=== PATIENT | female | born 1945 | race Two or more races ===

== ENCOUNTER 2022-10-27 10:30 | Inpatient (IN) | payer MEDICARE ==
[~2022-10-27] VITALS: Ht 162.6 cm; Wt 62.6 kg
[2022-10-27] MEDS ORDERED: EZET10TA32 PO (11:11)
[2022-10-27] MEDS ORDERED: HYDR30CR79 RC (11:11)
[2022-10-27] MEDS ORDERED: ACET-2605 PO (11:11)
[2022-10-27] MEDS ORDERED: SERT100T12 PO (11:11)
[2022-10-27] MEDS ORDERED: FOLI0.8C PO (11:11)
[2022-10-27] MEDS ORDERED: FAMO20TA8 PO (11:11)
[2022-10-27] MEDS ORDERED: CETI-90 PO (11:11)
[2022-10-27] MEDS ORDERED: CHOL200013 PO (11:11)
[2022-10-27] MEDS ORDERED: IPRA42SP BNOSTRILS (11:11)
[2022-10-27] MEDS ORDERED: MEMA10TA56 PO (11:11)
[2022-10-27] MEDS ORDERED: IBUP-2383 PO (11:11)
[2022-10-27] MEDS ORDERED: DONE5TAB34 PO (11:11)
[2022-10-27] MEDS ORDERED: BLOOD SUGAR DIAGNOSTIC 1 EACH STRIP IN ONE (15:00)
[2022-10-27] MEDS ORDERED: MAGNESIUM HYDROXIDE 30 ML UDC PO PRN (15:00)
[2022-10-27] MEDS ORDERED: ACETAMINOPHEN 325 MG TABLET PO PRN (15:00)
[2022-10-27] MEDS ORDERED: MAG HYDROX/AL HYDROX/SIMETH 30 ML UDC PO PRN (15:00)
[2022-10-27 15:01] VITALS: BP 125/59
[2022-10-27 16:00] VITALS: BP 127/69
[2022-10-27] MEDS: IPRATROPIUM NEB FS 0.5 MG/2.5 ML AMPUL.NEB NEB SCH (19:30)
[2022-10-27] MEDS: MEMANTINE HCL 5 MG TABLET PO SCH (20:48)
[2022-10-28] MEDS: IPRATROPIUM NEB FS 0.5 MG/2.5 ML AMPUL.NEB NEB SCH ×4 (01:30→19:30)
[2022-10-28] MEDS ORDERED: Z GUARD REMEDY 4 OZ OINT TP PRN (06:00)
[2022-10-28 08:00] VITALS: BP 138/56
[2022-10-28 08:19] LABS: BASOPHILS % (AUTO) 0.6 % (0.0-2.0); EOSINOPHILS % (AUTO) 0.8 % (0.0-6.0); HEMATOCRIT 41 % (33-45); HEMOGLOBIN 13.3 g/dL (11.5-14.8); LYMPHOCYTES # (AUTO) 1.1 K/uL (0.8-4.8); MEAN CORPUSCULAR HGB CONC 33 g/dl (31.0-36.0); MEAN CORPUSCULAR VOLUME 91 fL (82-100); MONOCYTES # (AUTO) 0.6 K/uL (0.1-1.30); MONOCYTES % (AUTO) 9.3 % (2.0-12.0); NEUTROPHILS # (AUTO) 4.6 K/uL (1.8-8.9); NEUTROPHILS % (AUTO) 72.3 % (43.0-81.0); PLATELET COUNT (AUTO) 213 K/uL (150-450); RED BLOOD CELL COUNT(AUTO) 4.46 MIL/uL (4.0-5.2); WHITE BLOOD COUNT (AUTO) 6.4 K/uL (4.3-11.0)
[2022-10-28 08:47] LABS: BILIRUBIN,TOTAL 0.8 mg/dL (0.2-1.0); CALCIUM, SERUM 9.9 mg/dL (8.5-10.1); POTASSIUM 3.2 mmol/L (3.5-5.1); TOTAL PROTEIN, SERUM 7.5 g/dL (6.4-8.2)
[2022-10-28] MEDS: EZETIMIBE 10 MG TABLET PO SCH (08:56)
[2022-10-28] MEDS: cetrizine 10 MG TABLET PO SCH (08:56)
[2022-10-28] MEDS: FOLIC ACID 1 MG TABLET PO SCH (08:56)
[2022-10-28] MEDS: FAMOTIDINE (20 MG) 20 MG TABLET PO SCH (08:56)
[2022-10-28] MEDS: CHOLECALCIFEROL 1,000 UNIT TABLET (VIT D3) PO SCH (08:56)
[2022-10-28] MEDS: DONEPEZIL 5 MG TABLET PO SCH (08:56)
[2022-10-28] MEDS: MEMANTINE HCL 5 MG TABLET PO SCH ×2 (08:57→22:13)
[2022-10-28] MEDS: Z GUARD REMEDY 4 OZ OINT TP SCH (08:57)
[2022-10-28 09:01] LABS: THYROID STIMULATING HORMONE 2.048 uIU/mL (0.358-3.74)
[2022-10-28] MEDS ORDERED: POTASSIUM CHLORIDE 10 MEQ TABLET.SA PO ONE (10:00)
[2022-10-28] MEDS: POTASSIUM CHLORIDE 20 MEQ TAB.PRT.SR PO SCH ×2 (11:13→12:30)
[2022-10-28] MEDS: DIVALPROEX SODIUM 250 MG TABLET.DR PO SCH ×2 (11:13→22:13)
[2022-10-28 16:00] VITALS: BP 148/59
[2022-10-28 20:00] VITALS: BP 127/71
[2022-10-28] MEDS: QUETIAPINE FUMARATE 25 MG TABLET PO SCH (22:12)
[2022-10-28] MEDS: ZOLPIDEM TARTRATE 5 MG TABLET PO PRN (22:13)
[2022-10-28] MEDS: ATORVASTATIN 10 MG TABLET PO SCH (22:19)
[2022-10-29] MEDS: IPRATROPIUM NEB FS 0.5 MG/2.5 ML AMPUL.NEB NEB SCH ×4 (01:30→19:30)
[2022-10-29 04:21] VITALS: BP 129/71
[2022-10-29 07:29] LABS: CALCIUM, SERUM 9.8 mg/dL (8.5-10.1); POTASSIUM 3.6 mmol/L (3.5-5.1)
[2022-10-29 08:00] VITALS: BP 137/70
[2022-10-29] MEDS: NITROFURANTOIN/MONOHYDRATE MACROCRYSTALS 100 MG CAPSULE PO SCH ×2 (09:32→21:27)
[2022-10-29] MEDS: ESCITALOPRAM OXALATE (10 MG) 10 MG TABLET PO SCH (09:32)
[2022-10-29] MEDS: EZETIMIBE 10 MG TABLET PO SCH (09:32)
[2022-10-29] MEDS: FOLIC ACID 1 MG TABLET PO SCH (09:33)
[2022-10-29] MEDS: ASPIRIN 81 MG TAB.CHEW PO SCH (09:33)
[2022-10-29] MEDS: CHOLECALCIFEROL 1,000 UNIT TABLET (VIT D3) PO SCH (09:33)
[2022-10-29] MEDS: MEMANTINE HCL 5 MG TABLET PO SCH ×2 (09:33→21:27)
[2022-10-29] MEDS: DIVALPROEX SODIUM 250 MG TABLET.DR PO SCH ×2 (09:33→21:27)
[2022-10-29] MEDS: DONEPEZIL 5 MG TABLET PO SCH (09:33)
[2022-10-29] MEDS: cetrizine 10 MG TABLET PO SCH (09:33)
[2022-10-29] MEDS: FAMOTIDINE (20 MG) 20 MG TABLET PO SCH (09:34)
[2022-10-29] MEDS: Z GUARD REMEDY 4 OZ OINT TP SCH (09:34)
[2022-10-29 16:00] VITALS: BP 142/69
[2022-10-29 20:28] VITALS: BP 139/72
[2022-10-29] MEDS: QUETIAPINE FUMARATE 25 MG TABLET PO SCH (21:27)
[2022-10-29] MEDS: ATORVASTATIN 10 MG TABLET PO SCH (21:27)
[2022-10-29] MEDS: MUPIROCIN OINT 2% 22 GM TUBE NS SCH (21:30)
[2022-10-30] MEDS: IPRATROPIUM NEB FS 0.5 MG/2.5 ML AMPUL.NEB NEB SCH ×4 (01:30→19:30)
[2022-10-30 08:00] VITALS: BP 127/63
[2022-10-30] MEDS: ESCITALOPRAM OXALATE (10 MG) 10 MG TABLET PO SCH (08:17)
[2022-10-30] MEDS: CHOLECALCIFEROL 1,000 UNIT TABLET (VIT D3) PO SCH (08:17)
[2022-10-30] MEDS: NITROFURANTOIN/MONOHYDRATE MACROCRYSTALS 100 MG CAPSULE PO SCH ×2 (08:18→21:58)
[2022-10-30] MEDS: DONEPEZIL 5 MG TABLET PO SCH (08:19)
[2022-10-30] MEDS: DIVALPROEX SODIUM 250 MG TABLET.DR PO SCH ×2 (08:19→21:57)
[2022-10-30] MEDS: EZETIMIBE 10 MG TABLET PO SCH (08:19)
[2022-10-30] MEDS: MEMANTINE HCL 5 MG TABLET PO SCH ×2 (08:19→21:58)
[2022-10-30] MEDS: ASPIRIN 81 MG TAB.CHEW PO SCH (08:19)
[2022-10-30] MEDS: cetrizine 10 MG TABLET PO SCH (08:19)
[2022-10-30] MEDS: FAMOTIDINE (20 MG) 20 MG TABLET PO SCH (08:19)
[2022-10-30] MEDS ORDERED: PHENYLEPHRINE/SHK LV/MO/PET,WH 30 GM TUBE RC PRN (09:00)
[2022-10-30] MEDS: Z GUARD REMEDY 4 OZ OINT TP SCH (09:00)
[2022-10-30] MEDS: MUPIROCIN OINT 2% 22 GM TUBE NS SCH ×2 (09:00→21:56)
[2022-10-30] MEDS: FOLIC ACID 1 MG TABLET PO SCH (11:12)
[2022-10-30 16:00] VITALS: BP 148/50
[2022-10-30 19:43] VITALS: BP 132/96
[2022-10-30] MEDS: ATORVASTATIN 10 MG TABLET PO SCH (21:58)
[2022-10-30] MEDS: QUETIAPINE FUMARATE 25 MG TABLET PO SCH (21:59)
[2022-10-30] MEDS: ZOLPIDEM TARTRATE 5 MG TABLET PO PRN (22:02)
[2022-10-31] MEDS: IPRATROPIUM NEB FS 0.5 MG/2.5 ML AMPUL.NEB NEB SCH ×4 (01:30→19:30)
[2022-10-31 08:00] VITALS: BP 119/68
[2022-10-31] MEDS: CHOLECALCIFEROL 1,000 UNIT TABLET (VIT D3) PO SCH (09:00)
[2022-10-31] MEDS: FOLIC ACID 1 MG TABLET PO SCH (09:40)
[2022-10-31] MEDS: cetrizine 10 MG TABLET PO SCH (09:40)
[2022-10-31] MEDS: DIVALPROEX SODIUM 250 MG TABLET.DR PO SCH ×2 (09:40→21:40)
[2022-10-31] MEDS: FAMOTIDINE (20 MG) 20 MG TABLET PO SCH (09:40)
[2022-10-31] MEDS: DONEPEZIL 5 MG TABLET PO SCH (09:40)
[2022-10-31] MEDS: NITROFURANTOIN/MONOHYDRATE MACROCRYSTALS 100 MG CAPSULE PO SCH ×2 (09:40→21:41)
[2022-10-31] MEDS: MEMANTINE HCL 5 MG TABLET PO SCH ×2 (09:40→21:41)
[2022-10-31] MEDS: EZETIMIBE 10 MG TABLET PO SCH (09:40)
[2022-10-31] MEDS: ASPIRIN 81 MG TAB.CHEW PO SCH (09:40)
[2022-10-31] MEDS: Z GUARD REMEDY 4 OZ OINT TP SCH (09:49)
[2022-10-31] MEDS: MUPIROCIN OINT 2% 22 GM TUBE NS SCH ×2 (09:49→21:43)
[2022-10-31] MEDS: LORAZEPAM 1 MG TABLET PO PRN (13:15)
[2022-10-31 16:00] VITALS: BP 135/55
[2022-10-31 20:35] VITALS: BP 110/69
[2022-10-31] MEDS: QUETIAPINE FUMARATE 25 MG TABLET PO SCH (21:40)
[2022-10-31] MEDS: ATORVASTATIN 10 MG TABLET PO SCH (21:41)
[2022-11-01] MEDS: IPRATROPIUM NEB FS 0.5 MG/2.5 ML AMPUL.NEB NEB SCH ×4 (01:30→19:30)
[2022-11-01 08:00] VITALS: BP 124/59
[2022-11-01] MEDS: CLOTRIMAZOLE/BETAMETASONE DIPROPIONATE 15 GM TUBE TP SCH ×2 (09:00→17:23)
[2022-11-01] MEDS ORDERED: ESCITALOPRAM OXALATE (10 MG) 10 MG TABLET PO SCH (09:00)
[2022-11-01] MEDS: ASPIRIN 81 MG TAB.CHEW PO SCH (09:04)
[2022-11-01] MEDS: EZETIMIBE 10 MG TABLET PO SCH (09:04)
[2022-11-01] MEDS: DIVALPROEX SODIUM 250 MG TABLET.DR PO SCH ×2 (09:04→22:18)
[2022-11-01] MEDS: CHOLECALCIFEROL 1,000 UNIT TABLET (VIT D3) PO SCH (09:04)
[2022-11-01] MEDS: Z GUARD REMEDY 4 OZ OINT TP SCH (09:05)
[2022-11-01] MEDS: FAMOTIDINE (20 MG) 20 MG TABLET PO SCH (09:05)
[2022-11-01] MEDS: cetrizine 10 MG TABLET PO SCH (09:05)
[2022-11-01] MEDS: MEMANTINE HCL 5 MG TABLET PO SCH ×2 (09:05→22:18)
[2022-11-01] MEDS: NITROFURANTOIN/MONOHYDRATE MACROCRYSTALS 100 MG CAPSULE PO SCH (09:05)
[2022-11-01] MEDS: DONEPEZIL 5 MG TABLET PO SCH (09:05)
[2022-11-01] MEDS: FOLIC ACID 1 MG TABLET PO SCH (09:05)
[2022-11-01] MEDS: MUPIROCIN OINT 2% 22 GM TUBE NS SCH ×2 (09:06→22:19)
[2022-11-01 16:00] VITALS: BP 129/68
[2022-11-01 20:32] VITALS: BP 150/51
[2022-11-01] MEDS: ATORVASTATIN 10 MG TABLET PO SCH (23:11)
[2022-11-01] MEDS: QUETIAPINE FUMARATE 25 MG TABLET PO SCH (23:11)
[2022-11-02] MEDS: IPRATROPIUM NEB FS 0.5 MG/2.5 ML AMPUL.NEB NEB SCH ×4 (01:30→19:30)
[2022-11-02 08:00] VITALS: BP 143/69
[2022-11-02] MEDS: MUPIROCIN OINT 2% 22 GM TUBE NS SCH ×2 (09:02→21:57)
[2022-11-02] MEDS: CLOTRIMAZOLE/BETAMETASONE DIPROPIONATE 15 GM TUBE TP SCH ×2 (09:04→17:05)
[2022-11-02] MEDS: Z GUARD REMEDY 4 OZ OINT TP SCH (09:04)
[2022-11-02] MEDS: DONEPEZIL 5 MG TABLET PO SCH (09:39)
[2022-11-02] MEDS: EZETIMIBE 10 MG TABLET PO SCH (09:39)
[2022-11-02] MEDS: MEMANTINE HCL 5 MG TABLET PO SCH ×2 (09:41→21:22)
[2022-11-02] MEDS: DIVALPROEX SODIUM 250 MG TABLET.DR PO SCH ×2 (09:41→21:22)
[2022-11-02] MEDS: FOLIC ACID 1 MG TABLET PO SCH (09:41)
[2022-11-02] MEDS: ASPIRIN 81 MG TAB.CHEW PO SCH (09:41)
[2022-11-02] MEDS: CHOLECALCIFEROL 1,000 UNIT TABLET (VIT D3) PO SCH (10:09)
[2022-11-02] MEDS: cetrizine 10 MG TABLET PO SCH (10:09)
[2022-11-02] MEDS: FAMOTIDINE (20 MG) 20 MG TABLET PO SCH (10:10)
[2022-11-02] MEDS: ENSURE ENLIVE CHOC 237 ML CAN PO SCH ×2 (12:00→17:05)
[2022-11-02 16:00] VITALS: BP 156/67
[2022-11-02 20:57] VITALS: BP 112/66
[2022-11-02] MEDS: QUETIAPINE FUMARATE 25 MG TABLET PO SCH (21:22)
[2022-11-02] MEDS: ATORVASTATIN 10 MG TABLET PO SCH (21:22)
[2022-11-02] MEDS: MIRTAZAPINE 15 MG TABLET PO SCH (21:22)
[2022-11-03] MEDS: IPRATROPIUM NEB FS 0.5 MG/2.5 ML AMPUL.NEB NEB SCH ×4 (01:30→19:30)
[2022-11-03] MEDS: DIVALPROEX SODIUM 250 MG TABLET.DR PO SCH (07:42)
[2022-11-03] MEDS: ASPIRIN 81 MG TAB.CHEW PO SCH (07:42)
[2022-11-03] MEDS: CHOLECALCIFEROL 1,000 UNIT TABLET (VIT D3) PO SCH (07:42)
[2022-11-03] MEDS: FOLIC ACID 1 MG TABLET PO SCH (07:43)
[2022-11-03] MEDS: FAMOTIDINE (20 MG) 20 MG TABLET PO SCH (07:43)
[2022-11-03] MEDS: cetrizine 10 MG TABLET PO SCH (07:43)
[2022-11-03] MEDS: MEMANTINE HCL 5 MG TABLET PO SCH ×2 (07:43→20:46)
[2022-11-03] MEDS: DONEPEZIL 5 MG TABLET PO SCH (07:44)
[2022-11-03] MEDS: EZETIMIBE 10 MG TABLET PO SCH (07:45)
[2022-11-03] MEDS: MUPIROCIN OINT 2% 22 GM TUBE NS SCH ×2 (07:47→20:43)
[2022-11-03 08:00] VITALS: BP 105/64
[2022-11-03] MEDS: Z GUARD REMEDY 4 OZ OINT TP SCH (08:08)
[2022-11-03] MEDS: ENSURE ENLIVE CHOC 237 ML CAN PO SCH ×3 (08:08→17:51)
[2022-11-03] MEDS: CLOTRIMAZOLE/BETAMETASONE DIPROPIONATE 15 GM TUBE TP SCH ×2 (10:24→17:51)
[2022-11-03 16:00] VITALS: BP 118/61
[2022-11-03 20:45] VITALS: BP 115/69
[2022-11-03] MEDS: ATORVASTATIN 10 MG TABLET PO SCH (21:02)
[2022-11-03] MEDS: MIRTAZAPINE 15 MG TABLET PO SCH (21:02)
[2022-11-03] MEDS: QUETIAPINE FUMARATE 25 MG TABLET PO SCH (21:03)
[2022-11-04] MEDS: IPRATROPIUM NEB FS 0.5 MG/2.5 ML AMPUL.NEB NEB SCH ×4 (01:30→19:30)
[2022-11-04] MEDS: ENSURE ENLIVE CHOC 237 ML CAN PO SCH ×3 (07:34→16:46)
[2022-11-04 08:00] VITALS: BP 110/56
[2022-11-04] MEDS: MUPIROCIN OINT 2% 22 GM TUBE NS SCH ×2 (08:11→21:02)
[2022-11-04] MEDS: MEMANTINE HCL 5 MG TABLET PO SCH ×2 (08:39→21:02)
[2022-11-04] MEDS: CHOLECALCIFEROL 1,000 UNIT TABLET (VIT D3) PO SCH (08:39)
[2022-11-04] MEDS: FAMOTIDINE (20 MG) 20 MG TABLET PO SCH (08:39)
[2022-11-04] MEDS: FOLIC ACID 1 MG TABLET PO SCH (08:39)
[2022-11-04] MEDS: EZETIMIBE 10 MG TABLET PO SCH (08:39)
[2022-11-04] MEDS: cetrizine 10 MG TABLET PO SCH (08:39)
[2022-11-04] MEDS: ASPIRIN 81 MG TAB.CHEW PO SCH (08:39)
[2022-11-04] MEDS: DONEPEZIL 5 MG TABLET PO SCH (08:39)
[2022-11-04] MEDS: Z GUARD REMEDY 4 OZ OINT TP SCH (08:40)
[2022-11-04] MEDS: CLOTRIMAZOLE/BETAMETASONE DIPROPIONATE 15 GM TUBE TP SCH ×2 (08:43→16:46)
[2022-11-04 16:00] VITALS: BP 110/68
[2022-11-04 20:00] VITALS: BP 140/81
[2022-11-04 20:41] VITALS: BP 110/81
[2022-11-04] MEDS: MIRTAZAPINE 15 MG TABLET PO SCH (21:02)
[2022-11-04] MEDS: ATORVASTATIN 10 MG TABLET PO SCH (21:02)
[2022-11-04] MEDS: QUETIAPINE FUMARATE 25 MG TABLET PO SCH (21:02)
[2022-11-05] MEDS: IPRATROPIUM NEB FS 0.5 MG/2.5 ML AMPUL.NEB NEB SCH ×4 (01:30→19:30)
[2022-11-05 08:00] VITALS: BP 139/86
[2022-11-05] MEDS: CHOLECALCIFEROL 1,000 UNIT TABLET (VIT D3) PO SCH (09:48)
[2022-11-05] MEDS: MEMANTINE HCL 5 MG TABLET PO SCH ×2 (09:48→20:44)
[2022-11-05] MEDS: ASPIRIN 81 MG TAB.CHEW PO SCH (09:48)
[2022-11-05] MEDS: FAMOTIDINE (20 MG) 20 MG TABLET PO SCH (09:48)
[2022-11-05] MEDS: DONEPEZIL 5 MG TABLET PO SCH (09:48)
[2022-11-05] MEDS: EZETIMIBE 10 MG TABLET PO SCH (09:48)
[2022-11-05] MEDS: cetrizine 10 MG TABLET PO SCH (09:48)
[2022-11-05] MEDS: CLOTRIMAZOLE/BETAMETASONE DIPROPIONATE 15 GM TUBE TP SCH ×2 (09:49→16:31)
[2022-11-05] MEDS: FOLIC ACID 1 MG TABLET PO SCH (09:49)
[2022-11-05] MEDS: MUPIROCIN OINT 2% 22 GM TUBE NS SCH ×2 (09:49→20:44)
[2022-11-05] MEDS: Z GUARD REMEDY 4 OZ OINT TP SCH (09:56)
[2022-11-05] MEDS: ENSURE ENLIVE CHOC 237 ML CAN PO SCH ×3 (09:56→16:31)
[2022-11-05 16:00] VITALS: BP 127/67
[2022-11-05 20:26] VITALS: BP 121/60
[2022-11-05] MEDS: MIRTAZAPINE 15 MG TABLET PO SCH (21:54)
[2022-11-05] MEDS: ATORVASTATIN 10 MG TABLET PO SCH (21:54)
[2022-11-05] MEDS: QUETIAPINE FUMARATE 25 MG TABLET PO SCH (21:55)
[2022-11-06] MEDS: IPRATROPIUM NEB FS 0.5 MG/2.5 ML AMPUL.NEB NEB SCH ×2 (01:30→19:30)
[2022-11-06 08:00] VITALS: BP 100/61
[2022-11-06] MEDS: ENSURE ENLIVE CHOC 237 ML CAN PO SCH ×3 (08:09→17:45)
[2022-11-06] MEDS: DONEPEZIL 5 MG TABLET PO SCH (09:40)
[2022-11-06] MEDS: CHOLECALCIFEROL 1,000 UNIT TABLET (VIT D3) PO SCH (09:40)
[2022-11-06] MEDS: FAMOTIDINE (20 MG) 20 MG TABLET PO SCH (09:41)
[2022-11-06] MEDS: cetrizine 10 MG TABLET PO SCH (09:41)
[2022-11-06] MEDS: ASPIRIN 81 MG TAB.CHEW PO SCH (09:41)
[2022-11-06] MEDS: EZETIMIBE 10 MG TABLET PO SCH (09:41)
[2022-11-06] MEDS: FOLIC ACID 1 MG TABLET PO SCH (09:41)
[2022-11-06] MEDS: CLOTRIMAZOLE/BETAMETASONE DIPROPIONATE 15 GM TUBE TP SCH ×2 (09:42→16:05)
[2022-11-06] MEDS: MEMANTINE HCL 5 MG TABLET PO SCH ×2 (09:42→21:14)
[2022-11-06] MEDS: Z GUARD REMEDY 4 OZ OINT TP SCH (09:42)
[2022-11-06 16:00] VITALS: BP 126/58
[2022-11-06 20:26] VITALS: BP 141/79
[2022-11-06] MEDS: LORAZEPAM 1 MG TABLET PO PRN (21:14)
[2022-11-06] MEDS: QUETIAPINE FUMARATE 25 MG TABLET PO SCH (21:14)
[2022-11-06] MEDS: MIRTAZAPINE 15 MG TABLET PO SCH (21:14)
[2022-11-06] MEDS: ATORVASTATIN 10 MG TABLET PO SCH (21:14)
[2022-11-07] MEDS: IPRATROPIUM NEB FS 0.5 MG/2.5 ML AMPUL.NEB NEB SCH ×4 (01:30→19:30)
[2022-11-07 08:00] VITALS: BP 102/77
[2022-11-07] MEDS: ENSURE ENLIVE CHOC 237 ML CAN PO SCH ×3 (08:12→17:00)
[2022-11-07] MEDS: DONEPEZIL 5 MG TABLET PO SCH ×2 (09:00→09:12)
[2022-11-07] MEDS: EZETIMIBE 10 MG TABLET PO SCH (09:01)
[2022-11-07] MEDS: MEMANTINE HCL 5 MG TABLET PO SCH ×2 (09:01→20:32)
[2022-11-07] MEDS: cetrizine 10 MG TABLET PO SCH (09:01)
[2022-11-07] MEDS: FOLIC ACID 1 MG TABLET PO SCH (09:01)
[2022-11-07] MEDS: ASPIRIN 81 MG TAB.CHEW PO SCH (09:02)
[2022-11-07] MEDS: CHOLECALCIFEROL 1,000 UNIT TABLET (VIT D3) PO SCH (09:02)
[2022-11-07] MEDS: FAMOTIDINE (20 MG) 20 MG TABLET PO SCH (09:03)
[2022-11-07] MEDS: Z GUARD REMEDY 4 OZ OINT TP SCH (09:03)
[2022-11-07] MEDS: CLOTRIMAZOLE/BETAMETASONE DIPROPIONATE 15 GM TUBE TP SCH ×2 (09:03→17:00)
[2022-11-07 16:30] VITALS: BP 114/75
[2022-11-07 20:43] VITALS: BP 133/65
[2022-11-07] MEDS: ATORVASTATIN 10 MG TABLET PO SCH (21:31)
[2022-11-07] MEDS: QUETIAPINE FUMARATE 25 MG TABLET PO SCH (21:32)
[2022-11-07] MEDS: MIRTAZAPINE 15 MG TABLET PO SCH (21:32)
[2022-11-08] MEDS: IPRATROPIUM NEB FS 0.5 MG/2.5 ML AMPUL.NEB NEB SCH ×4 (01:29→19:30)
[2022-11-08 06:54] LABS: BASOPHILS # (AUTO) 0.1 K/uL (0.0-0.2); BASOPHILS % (AUTO) 1.2 % (0.0-2.0); EOSINOPHILS % (AUTO) 2.7 % (0.0-6.0); HEMATOCRIT 39 % (33-45); HEMOGLOBIN 13.2 g/dL (11.5-14.8); LYMPHOCYTES # (AUTO) 1.7 K/uL (0.8-4.8); LYMPHOCYTES % (AUTO) 27.4 % (20.0-44.0); MEAN CORPUSCULAR HGB CONC 34 g/dl (31.0-36.0); MEAN CORPUSCULAR VOLUME 90 fL (82-100); MONOCYTES # (AUTO) 0.8 K/uL (0.1-1.30); MONOCYTES % (AUTO) 13.7 % (2.0-12.0); NEUTROPHILS # (AUTO) 3.4 K/uL (1.8-8.9); PLATELET COUNT (AUTO) 230 K/uL (150-450); RED BLOOD CELL COUNT(AUTO) 4.35 MIL/uL (4.0-5.2); WHITE BLOOD COUNT (AUTO) 6.1 K/uL (4.3-11.0)
[2022-11-08 07:15] LABS: CALCIUM, SERUM 10.1 mg/dL (8.5-10.1); CARBON DIOXIDE 29 mmol/L (21-32); CHLORIDE 105 mmol/L (98-107); GLUCOSE 114 mg/dL (74-106); MAGNESIUM 2.3 mg/dL (1.8-2.4); POTASSIUM 3.7 mmol/L (3.5-5.1); SODIUM SERUM 140 mmol/L (136-145); UREA NITROGEN, BLOOD 26 mg/dL (7-18)
[2022-11-08 08:00] VITALS: BP 129/60
[2022-11-08] MEDS: CHOLECALCIFEROL 1,000 UNIT TABLET (VIT D3) PO SCH (08:17)
[2022-11-08] MEDS: cetrizine 10 MG TABLET PO SCH (08:17)
[2022-11-08] MEDS: DONEPEZIL 5 MG TABLET PO SCH (08:18)
[2022-11-08] MEDS: EZETIMIBE 10 MG TABLET PO SCH (08:18)
[2022-11-08] MEDS: FOLIC ACID 1 MG TABLET PO SCH (08:18)
[2022-11-08] MEDS: MEMANTINE HCL 5 MG TABLET PO SCH ×2 (08:18→22:16)
[2022-11-08] MEDS: ASPIRIN 81 MG TAB.CHEW PO SCH (08:18)
[2022-11-08] MEDS: FAMOTIDINE (20 MG) 20 MG TABLET PO SCH (08:18)
[2022-11-08] MEDS: ENSURE ENLIVE CHOC 237 ML CAN PO SCH ×3 (08:19→17:06)
[2022-11-08] MEDS: CLOTRIMAZOLE/BETAMETASONE DIPROPIONATE 15 GM TUBE TP SCH ×2 (09:00→17:07)
[2022-11-08] MEDS: Z GUARD REMEDY 4 OZ OINT TP SCH (09:40)
[2022-11-08 16:00] VITALS: BP 146/54
[2022-11-08 20:00] VITALS: BP 142/86
[2022-11-08 20:35] VITALS: BP 142/86
[2022-11-08] MEDS: MIRTAZAPINE 15 MG TABLET PO SCH (22:16)
[2022-11-08] MEDS: QUETIAPINE FUMARATE 25 MG TABLET PO SCH (22:16)
[2022-11-08] MEDS: ATORVASTATIN 10 MG TABLET PO SCH (22:17)
[2022-11-09] MEDS: IPRATROPIUM NEB FS 0.5 MG/2.5 ML AMPUL.NEB NEB SCH ×4 (01:30→19:30)
[2022-11-09 08:00] VITALS: BP 117/64
[2022-11-09] MEDS: FAMOTIDINE (20 MG) 20 MG TABLET PO SCH (08:26)
[2022-11-09] MEDS: ASPIRIN 81 MG TAB.CHEW PO SCH (08:26)
[2022-11-09] MEDS: EZETIMIBE 10 MG TABLET PO SCH (08:26)
[2022-11-09] MEDS: FOLIC ACID 1 MG TABLET PO SCH (08:26)
[2022-11-09] MEDS: cetrizine 10 MG TABLET PO SCH (08:26)
[2022-11-09] MEDS: CHOLECALCIFEROL 1,000 UNIT TABLET (VIT D3) PO SCH (08:26)
[2022-11-09] MEDS: ENSURE ENLIVE CHOC 237 ML CAN PO SCH ×3 (08:26→17:28)
[2022-11-09] MEDS: DONEPEZIL 5 MG TABLET PO SCH (08:26)
[2022-11-09] MEDS: MEMANTINE HCL 5 MG TABLET PO SCH ×2 (08:26→21:17)
[2022-11-09] MEDS: CLOTRIMAZOLE/BETAMETASONE DIPROPIONATE 15 GM TUBE TP SCH ×2 (08:27→17:28)
[2022-11-09] MEDS: Z GUARD REMEDY 4 OZ OINT TP SCH (08:27)
[2022-11-09 16:00] VITALS: BP 116/60
[2022-11-09 20:28] VITALS: BP 106/69
[2022-11-09] MEDS: MIRTAZAPINE 15 MG TABLET PO SCH (21:17)
[2022-11-09] MEDS: QUETIAPINE FUMARATE 25 MG TABLET PO SCH (21:17)
[2022-11-09] MEDS: ATORVASTATIN 10 MG TABLET PO SCH (21:17)
[2022-11-10] MEDS: IPRATROPIUM NEB FS 0.5 MG/2.5 ML AMPUL.NEB NEB SCH ×3 (01:30→12:57)
[2022-11-10 08:00] VITALS: BP 99/65
[2022-11-10] MEDS: ENSURE ENLIVE CHOC 237 ML CAN PO SCH ×2 (08:29→11:58)
[2022-11-10] MEDS: FOLIC ACID 1 MG TABLET PO SCH (08:30)
[2022-11-10] MEDS: EZETIMIBE 10 MG TABLET PO SCH (08:30)
[2022-11-10] MEDS: DONEPEZIL 5 MG TABLET PO SCH (08:30)
[2022-11-10] MEDS: FAMOTIDINE (20 MG) 20 MG TABLET PO SCH (08:30)
[2022-11-10] MEDS: MEMANTINE HCL 5 MG TABLET PO SCH (08:30)
[2022-11-10] MEDS: cetrizine 10 MG TABLET PO SCH (08:30)
[2022-11-10] MEDS: ASPIRIN 81 MG TAB.CHEW PO SCH (08:30)
[2022-11-10] MEDS: CHOLECALCIFEROL 1,000 UNIT TABLET (VIT D3) PO SCH (08:30)
[2022-11-10] MEDS: Z GUARD REMEDY 4 OZ OINT TP SCH (08:31)
[2022-11-10] MEDS: CLOTRIMAZOLE/BETAMETASONE DIPROPIONATE 15 GM TUBE TP SCH (11:36)
== END 2022-11-10 13:25 | DRG 885 ==
LOC: ER 10:33 → GPS 14:08
PROVIDERS: ADMIT Psychiatry & Neurology Psychiatry; ATTEND Nurse Practitioner Family
DX: F33.3 Major depressive disorder, recurrent, severe with psychotic symptoms (principal); D68.1 Hereditary factor XI deficiency; G93.41 Metabolic encephalopathy; F03.92 Unspecified dementia, unspecified severity, with psychotic disturbance; F03.93 Unspecified dementia, unspecified severity, with mood disturbance; N39.0 Urinary tract infection, site not specified; G89.29 Other chronic pain; M85.9 Disorder of bone density and structure, unspecified; E78.5 Hyperlipidemia, unspecified; Z79.51 Long term (current) use of inhaled steroids; Z79.899 Other long term (current) drug therapy; B96.89 Other specified bacterial agents as the cause of diseases classified elsewhere; E87.6 Hypokalemia; Z91.199 Patient's noncompliance with other medical treatment and regimen due to unspecified reason
CPT/HCPCS: 36415; 71045-TC; 80048-TC; 80053-TC; 80061-TC; 80164-TC; 82962-TC; 83735-TC; 84443-TC; 85025-TC; 87081-TC; 97110-TC; 97112-TC; 97116-TC; 97530-TC; C9803